=== PATIENT | female | born 1985 | race Caucasian/White ===

== ENCOUNTER 2020-12-12 11:40 | Outpatient (CLI) | payer SELFPAY ==
[~2020-12-12] VITALS: Ht 145.1 cm; Wt 76.5 kg
[2020-12-12 12:18] VITALS: BP 121/69
[2020-12-12 12:22] VITALS: BP 121/69
[2020-12-12] MEDS ORDERED: LACTATED RINGERS 1,000 ML IV ONE (13:00)
[2020-12-12 13:10] LABS: CLARITY,URINE TURBID; COLOR,URINE YELLOW; GLUCOSE, URINE (UA) NEGATIVE (NEGATIVE); KETONES,URINE NEGATIVE (NEGATIVE); NITRITE,URINE NEGATIVE (NEGATIVE); PROTEIN,URINE 1+ (NEGATIVE)
[2020-12-12 13:11] LABS: LEUKOCYTE ESTERASE ,URINE 2+ (NEGATIVE)
[2020-12-12 13:13] LABS: BILIRUBIN,URINE 1+ (NEGATIVE)
[2020-12-12 13:16] LABS: WBC,URINE TNTC /HPF
[2020-12-12 13:17] LABS: BACTERIA,URINE MODERATE /HPF; TRICHOMONAS,URINE MODERATE /HPF
[2020-12-12] MEDS ORDERED: PREN-37 PO (14:45)
[2020-12-12] MEDS ORDERED: metroNIDAZOLE 500 MG (FLAGYL) TAB PO ONE (14:45)
[2020-12-12] MEDS ORDERED: FERR-84 PO (14:45)
--- NOTE | 2020-12-12 14:53 | Diagnostic Imaging Report ---
INDICATION: Leaking fluid. TECHNIQUE: Multiple real-time grayscale images were obtained over the gravid uterus. COMPARISON: None FINDINGS: There is a single live fetus in a cephalic presentation. heart rate was recorded 129 bpm. Placenta is anterior. Amniotic fluid index is low at 6.0 cm. No other significant abnormality is seen. Biometrical measurements are as follows: Biparietal 8.38 cm, age 33 weeks 6 days. Head circumference 30.35 cm, age 33 weeks 6 days. Abdominal circumference 29.35 cm, age 33 weeks 3 days. Femur length 6.25 cm, age 32 weeks 3 days. Sonographic estimate age: 33 weeks 3 days. Sonographic estimated date of delivery: 01/28/20. Estimated Weight: 2127 gm (+/- 311 gm). LMP percentile: 4%. heart rate: 129 beats per minute. number: 1 of 1. IMPRESSION: Single live IUP approximate 33 weeks gestational age. The estimated date of confinement sonographically is 01/28/2020. Note is made that the amniotic fluid index is slightly low at 6.0 cm. Dictated by: Dictated on workstation # [id number]
[2020-12-12] MEDS ORDERED: METR500T PO (15:05)
[2020-12-12 15:19] VITALS: BP 121/69
--- NOTE | 2020-12-13 09:15 | Physician Query-Final Dx ---
ADITYA SALCIDO 12/13/20 0915: Clinic Account Progress/Dx Physician Query: Please give diagnosis Please include # weeks gestation Date of Service Dec 12, 2020 at 11:40 MAYA CHADWICK MD 12/16/20 1932: Clinic Account Progress/Dx DIAGNOSIS: Diagnosis 1. Uterine cramping/irritability 2. Trich 3. IUP in 2nd trimester ADITYA SALCIDO Dec 13, 2020 09:15 MAYA CHADWICK MD Dec 16, 2020 19:32
== END 2020-12-12 15:19 | disposition home or self-care (01) ==
LOC: WSo 11:40 → LDRP 11:43 → WSo 15:19
PROVIDERS: ATTEND Family Medicine
DX: O62.4 Hypertonic, incoordinate, and prolonged uterine contractions (principal); O98.312 Other infections with a predominantly sexual mode of transmission complicating pregnancy, second trimester; Z3A.00 Weeks of gestation of pregnancy not specified
CPT/HCPCS: 76805; 81000; 87077; 87088; 96360; G0463; Q0114; 89060; 99214

== ENCOUNTER 2020-12-25 16:40 | Observation (INO) | payer MEDICAID, OTHER ==
[~2020-12-25] VITALS: Ht 146 cm; Wt 76.8 kg
[~2020-12-25 16:40] MED LIST: FERR-84 PO; METR500T PO; PREN-37 PO
[2020-12-25 17:13] VITALS: BP 123/72
[2020-12-25 17:39] LABS: BILIRUBIN,URINE NEGATIVE (NEGATIVE); CLARITY,URINE CLEAR; COLOR,URINE YELLOW; GLUCOSE, URINE (UA) NEGATIVE (NEGATIVE); KETONES,URINE NEGATIVE (NEGATIVE); LEUKOCYTE ESTERASE ,URINE NEGATIVE (NEGATIVE); NITRITE,URINE NEGATIVE (NEGATIVE); PROTEIN,URINE NEGATIVE (NEGATIVE)
[2020-12-25 17:48] LABS: BACTERIA,URINE TRACE /HPF; CALCIUM OXALATE CRYSTALS,UR MODERATE /LPF; WBC,URINE RARE /HPF
[2020-12-25 17:50] VITALS: BP 119/69
[2020-12-25] MEDS ORDERED: LACTATED RINGERS 1,000 ML IV ONE (18:13)
[2020-12-25] MEDS ORDERED: BETAMETHASONE ACE/NA PHOS 6 MG/ML (CELESTONE SOLUSPAN) ONE (18:13)
[2020-12-25] MEDS ORDERED: TERBUTALINE INJ 1 MG/ML (BRETHINE) AMP ONE ×2 (18:13→20:51)
[2020-12-25] MEDS ORDERED: BETAMETHASONE ACE/NA PHOS 6 MG/ML (CELESTONE SOLUSPAN) IM SCH (18:15)
[2020-12-25] MEDS ORDERED: TERBUTALINE INJ 1 MG/ML (BRETHINE) AMP SC ONE ×3 (18:15→22:45)
[2020-12-25] MEDS: LACTATED RINGERS 1,000 ML IV SCH ×2 (18:22→21:16)
[2020-12-25] MEDS ORDERED: BUTORPHANOL INJ 2 MG/ML (STADOL) VIAL ONE (18:54)
[2020-12-25] MEDS ORDERED: BUTORPHANOL INJ 2 MG/ML (STADOL) VIAL IV ONE (19:00)
[2020-12-25 20:30] VITALS: BP 108/58
[2020-12-25] MEDS ORDERED: ZOLPIDEM 5 MG (AMBIEN) TAB PO ONE (20:45)
[2020-12-25 22:30] VITALS: BP 119/53
[2020-12-25 23:30] VITALS: BP 108/50
[2020-12-26] VITALS (17 sets, daily range): BP systolic 92–125; BP diastolic 45–67
[2020-12-26] MEDS: LACTATED RINGERS 1,000 ML IV SCH ×2 (05:11→13:08)
--- NOTE | 2020-12-26 07:14 | History & Physical-OB ---
OB - Chief Complaint & HPI Date/Time Date of Admission: Date of Admission: Date seen by a Provider: Dec 26, 2020 Time Seen by a Provider: 06:30 Chief Complaint/History OB-Reason for Admission/Chief: contraction Hx : 7 Hx Para: 0 Expected Date of Delivery: Jan 12, 2021 Gestational Age in Weeks: 37 Gestational Age in Days: 8 Other 35 yo [id number] here with uterine contractions. She presented to [facility] with late care. She presented in third trimester and did not receive her first ultrasound until 2 weeks ago here at . EDC based upon late ultrasound is January 27, 2021. Allergies and Home Medications Allergies Coded Allergies: No Known Drug Allergies (Unverified , 12/12/20) Patient Home Medication List Home Medication List Reviewed: Yes Ferrous Sulfate (Iron) 325 Mg Tablet, 325 MG PO DAILY, (Reported) Entered as Reported by: UNRULY STEPHENS on 12/12/20 1445 Metronidazole (Flagyl) 500 Mg Tablet, 500 MG PO BID Prescribed by: UNRULY STEPHENS on 12/12/20 1505 Vit/Iron Fumarate/FA ( Tablet) 1 Each Tablet, 1 EACH PO DAILY, (Reported) Entered as Reported by: UNRULY STEPHENS on 12/12/20 1445 OB - History Hx of Present Care: Yes Ultrasounds: Other (Late US performed 12/12/2020) Obstetrical Complications: None Medical Complications: Other (Trich treated 12/19) Obstetrical History Hx : 7 Hx Para: 0 Hx Total # of Abortions (Spona: 0 Patient Past Medical History No chronic medical problems Social History/Family History Alcohol Use: Denies Use Recreational Drug Use: No 2nd Hand Smoke Exposure: No OB - Admission Exam Physical Exam Vitals: Vital Signs 12/26/20 12/26/20 03:30 06:30 Temp 36.6 Pulse 109 Resp 18 B/P (MAP) 109/56 (73) Pulse Ox 100 O2 Delivery Room Air HEENT: Moist Membranes Heart: Rhythm Normal Lungs: Clear Abdomen: Gravid Cervical Dilatation: 4cm Effacement: 75% Membranes: Intact Heart Rate: 140's Accelerations: Accelerations Present Contractions on Admission: 6-10 Minutes Apart Intensity: Mild Labs Laboratory Tests Test 12/25/20 16:50 Range/Units Urine Color YELLOW Urine Clarity CLEAR Urine pH 6.0 5-9 Urine Specific [place] 1.025 H 1.016-1.022 Urine Protein NEGATIVE NEGATIVE Urine Glucose (UA) NEGATIVE NEGATIVE Urine Ketones NEGATIVE NEGATIVE Urine Nitrite NEGATIVE NEGATIVE Urine Bilirubin NEGATIVE NEGATIVE Urine Urobilinogen 0.2 < = 1.0 MG/DL Urine Leukocyte Esterase NEGATIVE NEGATIVE Urine RBC (Auto) NEGATIVE NEGATIVE Urine RBC NONE /HPF Urine WBC RARE /HPF Urine Squamous Epithelial Cells 5-10 /HPF Urine Crystals PRESENT H /LPF Urine Calcium Oxalate Crystals MODERATE H /LPF Urine Bacteria TRACE /HPF Urine Casts NONE /LPF Urine Mucus NEGATIVE /LPF Urine Culture Indicated CULTURE PENDING OB - Assessment/Plan/Diagnosis Assessment Assessment: labor (with membranes intact) Admission Dx 1. IUP at 35 weeks with uterine contractions. Admission Status: Observation Plan Plan: Expectant Management Other Plan -betamethasone 2 doses planned. (1 given 12/25 and 1 planned for today) -hydration -rest MAYA CHADWICK MD Dec 26, 2020 07:14
[2020-12-26] MEDS: NIFEdipine 10 MG CAPS (WOMEN'S SERVICES ONLY!!!) PO SCH ×3 (08:38→16:36)
--- NOTE | 2020-12-26 09:50 | Diagnostic Imaging Report ---
INDICATION: Oligohydramnios. TECHNIQUE: Multiple real-time grayscale images were obtained over the gravid uterus. COMPARISON: None FINDINGS: Single live intrauterine fetus in vertex presentation. The placenta is anterior and not low. Amniotic fluid index is decreased. The largest fluid cavity measured is left upper quadrant at 3.4 cm with JOSR of 6. Biometrical measurements are as follows: Biparietal 8.96 cm, age 36 weeks 2 days. Head circumference 33.07 cm, age 37 weeks 5 days. Abdominal circumference 30.11 cm, age 34 weeks 1 days. Femur length 6.44 cm, age 33 weeks 2 days. Sonographic estimate age: 35 weeks 3 days. Sonographic estimated date of delivery: 01/27/2021. Estimated Weight: 2424 gm (+/- 354 gm). LMP percentile: 4%. heart rate: 136 beats per minute. number: 1 of 1. IMPRESSION: 1. There is a 37 week 4 day by LMP. Current measurements place the fetus in the 4th percent. 2. Decreased amniotic fluid volume. Dictated by: Dictated on workstation # [id number]
[2020-12-26] MEDS ORDERED: BETAMETHASONE ACE/NA PHOS 6 MG/ML (CELESTONE SOLUSPAN) IM SCH ×2 (12:15→18:15)
[2020-12-26] MEDS ORDERED: NIFE30TA2 PO (17:14)
== END 2020-12-26 17:22 | disposition home or self-care (01) ==
LOC: WSo 16:40 → LDRP 16:40 → WSo 12-26 09:43 → UNDOADMOB 12-26 09:56 → LDRP 12-26 09:56 → UNDODISOB 12-26 17:30 → EDSTATUS 01-04 09:19
PROVIDERS: ADMIT Family Medicine; ATTEND Family Medicine
DX: O60.03 Preterm labor without delivery, third trimester (principal); O09.523 Supervision of elderly multigravida, third trimester; Z3A.35 35 weeks gestation of pregnancy; Z79.899 Other long term (current) drug therapy
CPT/HCPCS: 76805; 81000; 87088; 87210; 96361 ×2; 96372 ×2; 96374; G0378; G0379; Q0114; 89060

== ENCOUNTER 2020-12-27 16:52 | Outpatient (CLI) | payer OTHER ==
[~2020-12-27] VITALS: Ht 146 cm; Wt 77.9 kg
[~2020-12-27 16:52] MED LIST changes: +NIFE30TA2 PO
--- NOTE | 2020-12-27 18:50 | History & Physical-OB ---
OB - Chief Complaint & HPI Date/Time Date of Admission: Date of Admission: Date seen by a Provider: Dec 27, 2020 Time Seen by a Provider: 18:45 Chief Complaint/History OB-Reason for Admission/Chief: Obstetrical Complication ( labor) Hx : 9 Hx Para: 8 Expected Date of Delivery: Jan 27, 2021 Gestational Age in Weeks: 35 Gestational Age in Days: 4 Indication for induction: other ( labor) Admission Nurse Assessment Rev: Yes History of Labs GBS status unknown Allergies and Home Medications Allergies Coded Allergies: No Known Drug Allergies (Unverified , 12/12/20) Patient Home Medication List Home Medication List Reviewed: Yes Ferrous Sulfate (Iron) 325 Mg Tablet, 325 MG PO DAILY, (Reported) Entered as Reported by: UNRULY STEPHENS on 12/12/20 1445 Nifedipine (Procardia Xl) 30 Mg Tab.er.24, 10 MG PO 4-6 hours PRN for as scheduled Prescribed by: JERILYN NOLAN on 12/26/20 1714 Vit/Iron Fumarate/FA ( Tablet) 1 Each Tablet, 1 EACH PO DAILY, (Reported) Entered as Reported by: UNRULY STEPHENS on 12/12/20 1445 Discontinued Medications Metronidazole (Flagyl) 500 Mg Tablet, 500 MG PO BID Discontinued Reason: No Longer Taking Prescribed by: UNRULY STEPHENS on 12/12/20 1505 OB - History Hx of Present Care: Yes Ultrasounds: Other (Late care) Abnormal Ultrasound Findings: Biophysical profile today 04/09 scoring at [facility] Obstetrical Complications: Other (As above) Medical Complications: None Patient Past Medical History No chronic medical problems Social History/Family History 2nd Hand Smoke Exposure: No OB - Admission Exam Physical Exam HEENT: Moist Membranes Heart: Rhythm Normal Lungs: Clear Abdomen: Gravid Cervical Dilatation: 3cm Effacement: 75% Station: -3 Membranes: Intact Heart Rate: 140's Accelerations: No Accelerations Contractions on Admission: 6-10 Minutes Apart Intensity: Mild OB - Assessment/Plan/Diagnosis Assessment Assessment: labor (At 35 weeks 4 days gestation), other Admission Dx 1. Intrauterine at 35 weeks 4 days gestation based upon late ultrasound 2. Biophysical profile 04/09 -due to gestational age will check with [facility] and the NICU for transfer. Admission Status: Observation Reason for Inpatient Admission: Further monitoring MAYA CHADWICK MD Dec 27, 2020 18:50
[2020-12-27 18:59] LABS: BASOPHILS % (AUTO) 0 % (0-10); EOSINOPHILS % (AUTO) 0 % (0-10); HEMATOCRIT 32 % (35-52); HEMOGLOBIN 10.1 g/dL (11.5-16.0); LYMPHOCYTES # (AUTO) 2.1 10^3/uL (1.0-4.0); LYMPHOCYTES % (AUTO) 17 % (12-44); MEAN CORPUSCULAR HEMOGLOBIN 27 pg (25-34); MEAN CORPUSCULAR HGB CONC 32 g/dL (32-36); MEAN CORPUSCULAR VOLUME 84 fL (80-99); MEAN PLATELET VOLUME 9.9 fL (9.0-12.2); MONOCYTES # (AUTO) 0.9 10^3/uL (0.0-1.0); MONOCYTES % (AUTO) 8 % (0-12); NEUTROPHILS # (AUTO) 9.1 10^3/uL (1.8-7.8); NEUTROPHILS % (AUTO) 73 % (42-75); PLATELET COUNT 300 10^3/uL (130-400); WHITE BLOOD COUNT 12.4 10^3/uL (4.3-11.0)
[2020-12-27 19:26] VITALS: BP 106/57
[2020-12-27 20:10] VITALS: BP 109/66
== END 2020-12-27 20:39 | disposition short-term general hospital (02) ==
LOC: WSo 16:52 → LDRP 16:56 → WSo 20:39
PROVIDERS: ATTEND Family Medicine
DX: O60.03 Preterm labor without delivery, third trimester (principal); Z3A.35 35 weeks gestation of pregnancy
CPT/HCPCS: 36415; 85025; 86850; 86900; 86901

== ENCOUNTER 2021-09-05 17:08 | Emergency (ER) | payer MEDICAID ==
[~2021-09-05] VITALS: Ht 145 cm; Wt 72.5 kg
[2021-09-05 17:35] LABS: BILIRUBIN,URINE NEGATIVE (NEGATIVE); CLARITY,URINE CLEAR; COLOR,URINE RED; GLUCOSE, URINE (UA) TRACE (NEGATIVE); KETONES,URINE TRACE (NEGATIVE); LEUKOCYTE ESTERASE ,URINE 2+ (NEGATIVE); NITRITE,URINE POSITIVE (NEGATIVE); PROTEIN,URINE 3+ (NEGATIVE)
[2021-09-05 17:44] LABS: BACTERIA,URINE MODERATE /HPF; RBC,URINE TNTC /HPF; WBC,URINE 25-50 /HPF
[2021-09-05] MEDS ORDERED: ACETAMINOPHEN 500 MG TAB (TYLENOL) PO STA (18:11)
[2021-09-05] MEDS ORDERED: NITR-65 PO (18:11)
--- NOTE | 2021-09-05 18:11 | ED GI ---
General Chief Complaint: Abdominal/GI Problems Stated Complaint: LEFT ABD PAIN AND LEFT BACK PAIN Nursing Triage Note: PT PRESENTS TO ED VIA EMS FROM HOME WITH COMPLAINTS OF LUQ AND LLQ PAIN THAT RADIATES TO HER BACK, AND BURING WITH URINATION. PT DENIES N/V/D. (MICHAEL OMER) History of Present Illness Date Seen by Provider: Sep 05, 2021 Time Seen by Provider: 17:15 Initial Comments 36 year old female reports suprapubic pain and UTI symptoms. No recent UTI. Denies other complaints. Timing/Duration: 1-2 Days Severity/Quality: Mild Location: Suprapubic Radiation: No Radiation Associated Symptoms: Denies Symptoms (MICHAEL OMER) Allergies and Home Medications Allergies Coded Allergies: No Known Drug Allergies (Unverified , 12/12/20) Patient Home Medication List Home Medication List Reviewed: Yes (MICHAEL OMER) Ferrous Sulfate (Iron) 325 Mg Tablet, 325 MG PO DAILY, (Reported) Entered as Reported by: UNRULY STEPHENS on 12/12/20 1445 Nifedipine (Procardia Xl) 30 Mg Tab.er.24, 10 MG PO 4-6 hours PRN for as scheduled Prescribed by: JERILYN NOLAN on 12/26/20 1714 Nitrofurantoin Monohyd/M-Cryst (Macrobid 100 mg Capsule) 100 Mg Capsule, 1 TAB PO BID Prescribed by: MICHAEL OMER on 09/05/21 181 Vit/Iron Fumarate/FA ( Tablet) 1 Each Tablet, 1 EACH PO DAILY, (Reported) Entered as Reported by: UNRULY STEPHENS on 12/12/20 1445 Review of Systems Review of Systems Constitutional: no symptoms reported, see HPI Genitourinary: See HPI, Frequency, Flank Pain (MICHAEL OMER) All Other Systems Reviewed Negative Unless Noted: Yes (MICHAEL OMER) Past Ddhlzvx-Xqnsfi-Scjaff Hx Patient Social History Substance use?: No Alcohol Use?: No Pt feels they are or have been: No (MICHAEL OMER) Family Medical History Reviewed Nursing Family Hx (MICHAEL OMER) Physical Exam Vital Signs Vital Signs - First Documented 09/05/21 17:10 Temp 35.7 Pulse 66 Resp 18 B/P (MAP) 161/86 (111) Pulse Ox 98 (PERRI SAENZ MD) Vital Signs Capillary Refill : Less Than 3 Seconds (MICHAEL OMER) Height/Weight/BMI Height: '" Weight: lbs. oz. kg; 34.00 BMI Method: General Appearance: WD/WN, no apparent distress Respiratory: chest non-tender, lungs clear, normal breath sounds Cardiovascular: normal peripheral pulses, regular rate, rhythm Gastrointestinal: normal bowel sounds, non tender, soft Back: normal inspection, no CVA tenderness Neurologic/Psychiatric: no motor/sensory deficits, alert, normal mood/affect, oriented x 3 Skin: normal color, warm/dry (MICHAEL OMER) Progress/Results/Core Measures Results/Orders Lab Results Laboratory Tests Test 09/05/21 17:29 Range/Units Urine Color RED H Urine Clarity CLEAR Urine pH 5.0 5-9 Urine Specific [place] >=1.030 1.016-1.022 Urine Protein 3+ H NEGATIVE Urine Glucose (UA) TRACE H NEGATIVE Urine Ketones TRACE H NEGATIVE Urine Nitrite POSITIVE H NEGATIVE Urine Bilirubin NEGATIVE NEGATIVE Urine Urobilinogen 2.0 < = 1.0 MG/DL Urine Leukocyte Esterase 2+ H NEGATIVE Urine RBC (Auto) 3+ H NEGATIVE Urine RBC TNTC H /HPF Urine WBC 25-50 H /HPF Urine Squamous Epithelial Cells 5-10 /HPF Urine Crystals NONE /LPF Urine Bacteria MODERATE H /HPF Urine Casts NONE /LPF Urine Mucus NEGATIVE /LPF Urine Culture Indicated YES (PERRI SAENZ MD) Vital Signs/I&O 09/05/21 09/05/21 17:10 18:18 Temp 35.7 Pulse 66 66 Resp 18 18 B/P (MAP) 161/86 (111) 150/80 Pulse Ox 98 98 (PERRI SAENZ MD) Blood Pressure Mean: 111 Departure Impression Primary Impression: UTI (urinary tract infection) Qualified Codes: N30.01 - Acute cystitis with hematuria Disposition: HOME, SELF-CARE Condition: Improved Departure-Patient Inst. Decision time for Depature: 18:00 (MICHAEL OMER) Referrals: MAYA CHADWICK MD (PCP/Family) Primary Care Physician Patient Instructions: Urinary Tract Infection, Adult (DC) Add. Discharge Instructions: Increase water intake, 16 ounces every 2 hours while awake. Empty bladder every 2 hours while awake. Drink 1 cup of cranberry juice daily. Take antibiotics as prescribed. You may alternate between Tylenol 650 mg and ibuprofen 600 mg every 4 hours for pain. Follow-up with your primary care provider or [facility] if symptoms are not improving or worsen Return to the emergency department for new, urgent healthcare needs. All discharge instructions reviewed with patient and/or family. Voiced understanding. Scripts Nitrofurantoin Monohyd/M-Cryst (Macrobid 100 mg Capsule) 100 Mg Capsule 1 TAB PO BID, #14 CAP 0 Refills Prov: MICHAEL OMER 09/05/21 ATTENDING PHYSICIAN NOTE: I was physically present as attending physician in the emergency department during the care of this patient, but I was not directly involved in the decision making or delivery of care for this patient. (PERRI SAENZ MD) MICHAEL OMER Sep 05, 2021 18:11 PERRI SAENZ MD Sep 06, 2021 06:24
[2021-09-05 18:18] VITALS: BP 150/80
== END 2021-09-05 18:18 | disposition home or self-care (01) ==
LOC: EDUNIT# 17:08 → ER 17:11
DX: N39.0 Urinary tract infection, site not specified (principal); Z28.310 Unvaccinated for COVID-19
CPT/HCPCS: 81000; 87088; 99283

== ENCOUNTER 2022-05-12 00:06 | Emergency (ER) | payer MEDICAID ==
[~2022-05-12] VITALS: Ht 145 cm; Wt 74.0 kg
[~2022-05-12 00:06] MED LIST changes: +NITR-65 PO
[2022-05-12 00:11] VITALS: BP 156/81
[2022-05-12] MEDS ORDERED: CLOTRIMAZOLE (00:16)
[2022-05-12] MEDS ORDERED: AMOX500T2 (00:16)
[2022-05-12 00:30] LABS: BILIRUBIN,URINE NEGATIVE (NEGATIVE); CLARITY,URINE CLEAR; COLOR,URINE YELLOW; GLUCOSE, URINE (UA) NEGATIVE (NEGATIVE); KETONES,URINE 1+ (NEGATIVE); LEUKOCYTE ESTERASE ,URINE 2+ (NEGATIVE); NITRITE,URINE NEGATIVE (NEGATIVE); PH,URINE 6.5 (5-9); PROTEIN,URINE 1+ (NEGATIVE)
[2022-05-12 00:36] LABS: BACTERIA,URINE MODERATE /HPF; RBC,URINE TNTC /HPF; WBC,URINE TNTC /HPF
--- NOTE | 2022-05-12 00:54 | ED GU-Female ---
General Chief Complaint: - Reproductive Stated Complaint: POSS MED REACTION Nursing Triage Note: C/O PAINFUL URINATION STARTING TONIGHT. STARTED ON AMOXICILLIN & CLOMOTRIZOLE 05/11/22 FOR INFECTION. PT REPORTS BEING 3 MONTHS WITH LMP 02/08/23 Allergies and Home Medications Allergies Coded Allergies: No Known Drug Allergies (Unverified , 12/12/20) Patient Home Medication List Amoxicillin (Amoxicillin) 500 Mg Tablet, (Reported) Entered as Reported by: CARLIE OLEARY on 05/12/2215 Last Action: New Order Ferrous Sulfate (Iron) 325 Mg Tablet, 325 MG PO DAILY, (Reported) Entered as Reported by: UNRULY STEPHENS on 12/12/20 1445 Nifedipine (Procardia Xl) 30 Mg Tab.er.24, 10 MG PO 4-6 hours PRN for as scheduled Prescribed by: JERILYN NOLAN on 12/26/20 171 Nitrofurantoin Monohyd/M-Cryst (Macrobid 100 mg Capsule) 100 Mg Capsule, 1 TAB PO BID Prescribed by: MICHAEL OMER on 09/05/21 181 Vit/Iron Fumarate/FA ( Tablet) 1 Each Tablet, 1 EACH PO DAILY, (Reported) Entered as Reported by: UNRULY STEPHENS on 12/12/20 1445 [Clotrimazole] , (Reported) Entered as Reported by: CARLIE OLEARY on 05/12/2215 Last Action: New Order Past Jpmrysq-Qalcvn-Sjkckr Hx Patient Social History Tobacco Use?: No Substance use?: No Alcohol Use?: No Pt feels they are or have been: No Immunizations Up To Date First/Initial COVID19 Vaccinat: NA Past Medical History Surgery/Hospitalization HX: DENIES Last Menstrual Period: Feb 08, 2023 Physical Exam Vital Signs Vital Signs - First Documented 05/12/22 00:11 Temp 36.2 Pulse 82 Resp 16 B/P (MAP) 156/81 (106) Pulse Ox 99 O2 Delivery Room Air Capillary Refill : Less Than 3 Seconds Height, Weight, BMI Height: '" Weight: lbs. oz. kg; 35.00 BMI Method: Progress/Results/Core Measures Suspected Sepsis SIRS Temperature: Pulse: 82 Respiratory Rate: 16 Blood Pressure 156 /81 Mean: 106 Results/Orders Lab Results Laboratory Tests Test 05/12/22 00:14 Range/Units Urine Color YELLOW Urine Clarity CLEAR Urine pH 6.5 5-9 Urine Specific [place] >=1.030 1.016-1.022 Urine Protein 1+ H NEGATIVE Urine Glucose (UA) NEGATIVE NEGATIVE Urine Ketones 1+ H NEGATIVE Urine Nitrite NEGATIVE NEGATIVE Urine Bilirubin NEGATIVE NEGATIVE Urine Urobilinogen 1.0 < = 1.0 MG/DL Urine Leukocyte Esterase 2+ H NEGATIVE Urine RBC (Auto) 2+ H NEGATIVE Urine RBC TNTC H /HPF Urine WBC TNTC H /HPF Urine Squamous Epithelial Cells 5-10 /HPF Urine Crystals NONE /LPF Urine Bacteria MODERATE H /HPF Urine Casts NONE /LPF Urine Mucus NEGATIVE /LPF Urine Culture Indicated YES My Orders Orders - JAIMIE TYLER DO Ua Culture If Indicated (05/12/22 00:24) Urine Culture (05/12/22 00:14) Heart Tones (05/12/22 00:44) Vital Signs/I&O 05/12/22 00:11 Temp 36.2 Pulse 82 Resp 16 B/P (MAP) 156/81 (106) Pulse Ox 99 O2 Delivery Room Air Capillary Refill : Less Than 3 Seconds Blood Pressure Mean: 106 Departure Impression Primary Impression: uti in early Disposition: 01 HOME, SELF-CARE Condition: Stable Departure-Patient Inst. Decision time for Depature: 00:53 Referrals: MAYA CHADWICK MD (PCP/Family) Primary Care Physician Patient Instructions: Urinary Tract Infections in Add. Discharge Instructions: CONTINUE YOUR MEDICATIONS PRESCRIBED LOTS OF WATER TYLENOL NEEDED FOR PAIN FOLLOW UP WITH [facility] THIS WEEK FOR FURTHER CARE--CALL IN THE MORNING TO SCHEDULE APPOINTMENT All discharge instructions reviewed with patient and/or family. Voiced understanding. JAIMIE TYLER DO May 12, 2022 00:54
== END 2022-05-12 00:55 | disposition home or self-care (01) ==
LOC: EDUNIT# 00:06 → ER 00:08
DX: O23.41 Unspecified infection of urinary tract in pregnancy, first trimester (principal); N39.0 Urinary tract infection, site not specified; Z28.310 Unvaccinated for COVID-19
CPT/HCPCS: 81000; 84703; 87088

== ENCOUNTER 2022-10-08 05:40 | Outpatient (CLI) | payer MEDICAID ==
[~2022-10-08] VITALS: Ht 144.8 cm; Wt 71.4 kg
[~2022-10-08 05:40] MED LIST changes: +AMOX500T2; +CLOTRIMAZOLE
[2022-10-08 05:46] VITALS: BP 119/59
[2022-10-08 06:26] LABS: BILIRUBIN,URINE NEGATIVE (NEGATIVE); CLARITY,URINE SLIGHTLY CLOUDY; COLOR,URINE YELLOW; GLUCOSE, URINE (UA) TRACE (NEGATIVE); KETONES,URINE NEGATIVE (NEGATIVE); NITRITE,URINE NEGATIVE (NEGATIVE); PROTEIN,URINE TRACE (NEGATIVE)
[2022-10-08 06:27] LABS: BACTERIA,URINE TRACE /HPF; GRANULAR CASTS,URINE RARE /LPF; LEUKOCYTE ESTERASE ,URINE TRACE (NEGATIVE); RBC,URINE RARE /HPF; RED BLOOD CELL CASTS,URINE RARE /LPF; WBC,URINE 0-2 /HPF
[2022-10-08 08:15] VITALS: BP 100/60
--- NOTE | 2022-10-09 09:13 | Physician Query-Final Dx ---
LOLY10/09/22 0913: Clinic Account Progress/Dx Physician Query: Please give diagnosis Please include # weeks gestation Date of Service Oct 08, 2022 at 05:40 MAYA CHADWICK MD 10/20/22 2202: Clinic Account Progress/Dx DIAGNOSIS: Diagnosis 1. Intrauterine at 32 weeks gestation 2. Uterine irritabilitynon-labor LOLY,MarOct 09, 2022 09:13 MAYA CHADWICK MD Oct 20, 2022 22:02
== END 2022-10-08 09:00 | disposition home or self-care (01) ==
LOC: LDRP 05:40 → WSo 05:40
PROVIDERS: ATTEND Family Medicine
DX: Z34.93 Encounter for supervision of normal pregnancy, unspecified, third trimester (principal); Z3A.32 32 weeks gestation of pregnancy
CPT/HCPCS: 81000; G0463; 99213

== ENCOUNTER 2022-10-21 00:12 | Outpatient (CLI) | payer MEDICAID ==
[~2022-10-21] VITALS: Ht 145 cm; Wt 71.1 kg
[2022-10-21 00:28] VITALS: BP 125/73
[2022-10-21 00:45] LABS: BACTERIA,URINE TRACE /HPF; BILIRUBIN,URINE NEGATIVE (NEGATIVE); CLARITY,URINE CLEAR; COLOR,URINE YELLOW; GLUCOSE, URINE (UA) NEGATIVE (NEGATIVE); KETONES,URINE NEGATIVE (NEGATIVE); LEUKOCYTE ESTERASE ,URINE TRACE (NEGATIVE); NITRITE,URINE NEGATIVE (NEGATIVE); PROTEIN,URINE NEGATIVE (NEGATIVE); WBC,URINE RARE /HPF
[2022-10-21 00:46] LABS: CALCIUM OXALATE CRYSTALS,UR RARE /LPF
[2022-10-21] MEDS ORDERED: BETAMETHASONE Acetate/Na Phosphate 6 MG/ML INJ IM ONE (02:00)
[2022-10-21] MEDS ORDERED: LACTATED RINGERS 1,000 ML 1,000 ML IV SCH (02:00)
--- NOTE | 2022-10-22 07:43 | Physician Query-Final Dx ---
LOLY,10/22/22 0742: Clinic Account Progress/Dx Physician Query: Please give diagnosis Please include # weeks gestation Date of Service Oct 21, 2022 at 00:12 SALVADOR CELIS DO 10/24/22 1022: Clinic Account Progress/Dx DIAGNOSIS: Diagnosis 34 wk GA contractions, not in active labor LOLY,MarOct 22, 2022 07:42 SALVADOR CELIS DO Oct 24, 2022 10:22
== END 2022-10-21 03:50 | disposition home or self-care (01) ==
LOC: WSo 00:12 → LDRP 00:13 → WSo 03:50
PROVIDERS: ATTEND Family Medicine
DX: O47.03 False labor before 37 completed weeks of gestation, third trimester (principal); Z3A.34 34 weeks gestation of pregnancy
CPT/HCPCS: 81000; 96360; 96372; G0463; 99213

== ENCOUNTER → 2022-10-22 | Outpatient (CLI) | payer MEDICAID | LOC: WSo 08:39 | PROVIDERS: ATTEND Family Medicine | DX: Z34.90 Encounter for supervision of normal pregnancy, unspecified, unspecified trimester (principal); Z3A.00 Weeks of gestation of pregnancy not specified | CPT/HCPCS: 96372 ==

== ENCOUNTER 2022-11-11 05:29 | Outpatient (CLI) | payer MEDICAID ==
[~2022-11-11] VITALS: Ht 146.3 cm; Wt 73.8 kg
[2022-11-11] MEDS ORDERED: FERR500P12 MC (13:35)
[2022-11-11] MEDS ORDERED: INSU100I88 SQ (13:35)
[2022-11-11] MEDS ORDERED: METF-397 PO (13:35)
[2022-11-13] MEDS ORDERED: DOCU100C37 PO (08:58)
[2022-11-13] MEDS ORDERED: IBUP-1780 PO (08:58)
[2022-11-13] MEDS ORDERED: ACHD5005 PO (08:58)
== END 2022-11-13 09:33 | disposition home or self-care (01) ==
LOC: PREOP 05:29
PROVIDERS: ATTEND Obstetrics & Gynecology
DX: Z01.818 Encounter for other preprocedural examination (principal)

== ENCOUNTER 2022-11-12 03:58 | Inpatient (IN) | payer MEDICAID ==
[~2022-11-12] VITALS: Ht 144.7 cm; Wt 73.4 kg
[2022-11-12] VITALS (13 sets, daily range): BP systolic 95–124; BP diastolic 47–60
[~2022-11-12 03:58] MED LIST changes: +FERR500P12 MC; +INSU100I88 SQ; +METF-397 PO
[2022-11-12] MEDS ORDERED: LACTATED RINGERS 1,000 ML 1,000 ML IV SCH (05:30)
[2022-11-12] MEDS ORDERED: ceFAZolin INJECTION 2,000 MG in NS (IVPB) 50 ML 50 ML IV ONE (06:45)
[2022-11-12] MEDS ORDERED: FAMOTIDINE INJ 20MG/2ML VIAL ONE (06:46)
[2022-11-12] MEDS ORDERED: CITRIC ACID/SODIUM CITRATE ORAL SOLN 30 ML ONE (06:46)
[2022-11-12] MEDS ORDERED: METOCLOPRAMIDE INJ 10 MG/2 ML ONE (06:46)
[2022-11-12 06:52] LABS: BASOPHILS # (AUTO) 0.1 10^3/uL (0.0-0.1); BASOPHILS % (AUTO) 1 % (0-10); EOSINOPHILS # (AUTO) 0.2 10^3/uL (0.0-0.3); EOSINOPHILS % (AUTO) 2 % (0-10); HEMATOCRIT 34 % (35-52); LYMPHOCYTES # (AUTO) 2.2 10^3/uL (1.0-4.0); LYMPHOCYTES % (AUTO) 25 % (12-44); MEAN CORPUSCULAR HEMOGLOBIN 27 pg (25-34); MEAN CORPUSCULAR HGB CONC 33 g/dL (32-36); MEAN CORPUSCULAR VOLUME 83 fL (80-99); MEAN PLATELET VOLUME 10.6 fL (9.0-12.2); MONOCYTES # (AUTO) 0.7 10^3/uL (0.0-1.0); MONOCYTES % (AUTO) 8 % (0-12); NEUTROPHILS # (AUTO) 5.8 10^3/uL (1.8-7.8); NEUTROPHILS % (AUTO) 64 % (42-75); PLATELET COUNT 293 10^3/uL (130-400); WHITE BLOOD COUNT 9.1 10^3/uL (4.3-11.0)
--- NOTE | 2022-11-12 06:57 | History & Physical-OB ---
OB - Chief Complaint & HPI Date/Time Date of Admission: Date of Admission: Date seen by a Provider: Nov 12, 2022 Time Seen by a Provider: 06:40 Chief Complaint/History OB-Reason for Admission/Chief: Section Hx : 10 Hx Para: 9 Expected Date of Delivery: Nov 27, 2022 Gestational Age in Weeks: 37 Gestational Age in Days: 6 Indication for induction: medical complication (GDMA2) Indication for : malpresentation, other ( decelerations) Admission Nurse Assessment Rev: Yes History of Labs O+ GBS + R-NI RPR NEG HEP B/C NEG HIV NEG Other This 37yo presents to L&D @ 37w6d with c/o CTXs that started this am. is significant for GDMA2, Breech presentation and low fluid. Upon arrival her cvx was 3/50/-3 (still breech) and CTXs q2-4min FHT 135 and good variability; however FHT were then decreased with two 2-3min decels (lates) It was decided to proceed to LTCS We d/w pt risks and benefits in detail of section. Pt verbalized understanding and is ready to proceed. Allergies and Home Medications Allergies Coded Allergies: No Known Drug Allergies (Unverified , 12/12/20) Patient Home Medication List Home Medication List Reviewed: Yes Ferrous Sulfate (Iron) 325 Mg Tablet, 325 MG PO DAILY, (Reported) Entered as Reported by: UNRULY STEPHENS on 12/12/201444 Last Action: Reviewed Insulin Detemir (Levemir Flexpen) 100 Unit/Ml (3 Ml) Insuln.pen, 100 UNIT SQ, (Reported) Entered as Reported by: Noris Gutierrez on 11/11/221334 Last Action: Reviewed Metformin HCl (Metformin HCl) 500 Mg Tablet, 500 MG PO, (Reported) Entered as Reported by: Noris Gutierrez on 11/11/221334 Last Action: Reviewed Vit/Iron Fumarate/FA ( Tablet) 1 Each Tablet, 1 EACH PO DAILY, (Reported) Entered as Reported by: UNRULY STEPHENS on 12/12/20 144 Last Action: Reviewed Discontinued Medications Ferrous Sulfate, Dried (Ferrous Sulfate) 100 % Powder, 500 GM MC, (Reported) Discontinued Reason: Duplicate Order Entered as Reported by: Noris Gutierrez on 11/11/221334 OB - History Hx of Present Care: Yes Ultrasounds: Normal mid trimester US, Abnormal US findings (breech presentation ) Obstetrical Complications: Gestational Diabetes Medical Complications: None Information Maternal Gestational Diabetes: Yes Obstetrical History Hx : 10 Hx Para: 9 Hx # Term Pregnancies: 8 Hx # Pregnancies: 1 Number of Living Children: 9 Hx Maternal Gestational Diabet: Yes Delivery History Hx Dystocia: No Hx Forceps Assisted Delivery: No Hx Vacuum Extraction Assisted: No Hx Placenta Abnormality: No Hx Distress: No Hx Large For Gestational Age I: No Hx Small for Gestational Age I: No Hx Section: No Hx Vaginal Delivery Post C-Sec: No Hx Blood Disorders: No Adverse Rxn to Tranfusion: No (NA) Patient Past Medical History No chronic medical problems Social History/Family History Alcohol Use: Denies Use Recreational Drug Use: No 2nd Hand Smoke Exposure: No Immunizations Influenza Vaccine Up-to-Date: Yes; Up-to-Date First/Initial COVID19 Vaccine: NA Rubella: not immune RPR/VDRL: Negative GBS Status: Positive HBsAG: Negative OB - Admission Exam Physical Exam Vitals: Vital Signs 11/12/22 11/12/22 04:26 05:40 Temp 36.2 Pulse 80 Resp 18 B/P (MAP) 120/60 (80) Pulse Ox 100 O2 Delivery Room Air HEENT: NCAT Lungs: Clear Abdomen: Gravid Extremities: Normal Reflexes: Normal Cervical Dilatation: 3cm Effacement: 50% Station: -3 Membranes: Intact Heart Rate: 130's Accelerations: Accelerations Present Decelerations: Late Decelarations Short Term Variability: Present Lithographic Stripper Variability: Average (6-25) Contractions on Admission: < 5 Minutes Apart Intensity: Moderate Labs Laboratory Tests Test 11/12/22 05:30 Range/Units OB - Assessment/Plan/Diagnosis Assessment Assessment: active labor, section Admission Dx IUP @ 37w6d GDMA2 Adv mat age labor decels Admit for LTCS Admission Status: Inpatient Order (span 2 midnights) Reason for Inpatient Admission: IUP @ 37w6d GDMA2 Adv mat age labor decels Admit for LTCS Plan Plan: Section ELKE FAIRCHILD DO Nov 12, 2022 06:57
[2022-11-12] MEDS ORDERED: METOCLOPRAMIDE INJ 10 MG/2 ML IV ONE (07:00)
[2022-11-12] MEDS ORDERED: CITRIC ACID/SODIUM CITRATE ORAL SOLN 30 ML PO ONE (07:00)
[2022-11-12] MEDS ORDERED: LACTATED RINGERS 1,000 ML 1,000 ML IV PRN ×2 (07:00)
[2022-11-12] MEDS ORDERED: FAMOTIDINE INJ 20MG/2ML VIAL IV ONE (07:00)
[2022-11-12] MEDS ORDERED: ONDANSETRON INJECTION 4 MG/2 ML (SDV) ONE (07:05)
[2022-11-12] MEDS ORDERED: BUPIVACAINE 0.25% 10 ML VIAL ONE (07:05)
[2022-11-12] MEDS ORDERED: KETOROLAC INJ 30 MG/ML VIAL ONE (07:05)
[2022-11-12] MEDS ORDERED: fentaNYL INJECTION 100 MCG/2 ML VIAL ONE (07:05)
[2022-11-12] MEDS ORDERED: OXYTOCIN DRIP PRE-MIX 1,000 ML IV ONE (07:05)
[2022-11-12 07:17] LABS: BAND NEUTROPHILS 0 %; BASOPHILS % (MANUAL) 0 %; EOSINOPHILS % (MANUAL) 3 %; LYMPHOCYTES % (MANUAL) 21 %; MONOCYTES % (MANUAL) 6 %; NEUTROPHILS % (MANUAL) 70 %; RBC MORPH NORMAL
[2022-11-12] MEDS: KETOROLAC INJ 15 MG/ML VIAL IV SCH ×2 (08:05→17:20)
--- NOTE | 2022-11-12 08:13 | Cesarean Section Operative ---
Procedure Procedure Note Pre-operative Diagnosis: Roslyn Abernathy is a (37 /Para 10 / 9, Gestational Age (wks)37w6d with breech presentation decels GDMA2 Post-operative Diagnosis: same plus liveborn female Procedure: Primary low transverse section Physician: ELKE FAIRCHILD Reel Hooker: Estimated blood loss: 500 mL Disposition: Counts correct x3 Stable to PACU Findings: Liveborn female infant, Apgars 7/8, weight 7#8oz, intact placenta, 3vc, normal appearing uterus, tubes, and ovaries. Indications:Roslyn osborne (37 /Para 10 / 9,Gestational Age (wks) 37w6d presenting for labor breech presentation decelerations Procedure Details: The patient was seen in pre-op and the procedure was discussed with the patient in full, including the risks, benefits, and alternatives. All questions were answered. The patient was taken to the operating room and a time out was performed, verifying patient and procedure. After spinal anesthesia was placed by our anesthesia colleagues, the patient was placed in the dorsal supine with leftward tilt for uterine displacement.~ Her abdomen was then prepped and draped in the typical sterile fashion. A Pfannenstiel skin incision was made using a scalpel and carried down through the underlying fascia. The fascia was incised in the midline and tented up using Rosette clamps. On both the inferior and superior fascia side the rectus muscle was dissected off bluntly and sharply using Eid scissors. The peritoneum was identified and entered bluntly in the midline. This was then stretched laterally using manual strength. After entering the abdominal cavity and confirming lack of intraperitoneal adhesions, a large Carmine retractor was placed and the lower uterine segment was visualized. A bladder flap was created with the use of Metzenbaum scissors.~ A scalpel was utilized to make a low transverse uterine incision. Amniotomy was performed with an Allis clamp with return of clear fluid. The infant's head was grasped and brought to the level of the incision. Fundal pressure was applied and infant was delivered without difficulty. Mouth and nares were suctioned with bulb suction. After the umbilical cord was clamped and cut, the was handed off to the pediatric staff. A sample of cord blood was then obtained. The placenta was delivered intact via uterine massage. The uterus was exteriorized and cleared of all clots and debris. The uterine incision was closed using 0 Vicryl in a running locked fashion. A second imbricated layer was placed using 0 Vicryl in a running fashion as well. The uterus was flexed forward and the posterior rectouterine space was inspected and cleared of all clots and debris. Again the hysterotomy site was examined and hemostasis was observed. The bilateral tubes and ovaries appeared normal. The uterus was placed back into the abdominal cavity and abdominal gutters were cleared of all clots and debris. A final check of the uterine incision showed it to be hemostatic. The peritoneum was closed using 0 Vicryl in a running fashion. The fascia was closed with 1 Vicryl in a running fashion. The subcutaneous space was hemostatic, and irrigated. The subcutaneous space was closed with 2-0 Vicryl in several single interrupted stitches. The skin was then closed using 4-0 Monocryl in a running subcuticular fashion. The skin edges were reapproximated together and were hemostatic. Dermabond was applied. All sponge, lap and needle counts were correct at the end of the procedure per nursing. Vitals - Labs Vital Signs - I&O Vital Signs Date Time Temp Pulse Resp B/P (MAP) Pulse Ox O2 Delivery O2 Flow Rate FiO2 11/12/22 05:40 80 18 120/60 (80) 100 Room Air 11/12/22 04:26 36.2 79 16 113/55 100 Room Air 11/12/22 04:20 36.5 80 18 113/55 (74) 100 Room Air Labs Laboratory Tests 11/12/22 05:30: White Blood Count 9.1, Red Blood Count 4.06, Hemoglobin 11.0L, Hematocrit 34L, Mean Corpuscular Volume 83, Mean Corpuscular Hemoglobin 27, Mean Corpuscular Hemoglobin Concent 33, Red Cell Distribution Width 14.2, Platelet Count 293, Mean Platelet Volume 10.6, Immature Granulocyte % (Auto) 1, Neutrophils (%) (Auto) 64, Lymphocytes (%) (Auto) 25, Monocytes (%) (Auto) 8, Eosinophils (%) (Auto) 2, Basophils (%) (Auto) 1, Neutrophils # (Auto) 5.8, Lymphocytes # (Auto) 2.2, Monocytes # (Auto) 0.7, Eosinophils # (Auto) 0.2, Basophils # (Auto) 0.1, Immature Granulocyte # (Auto) 0.1, Neutrophils % (Manual) 70, Lymphocytes % (Manual) 21, Monocytes % (Manual) 6, Eosinophils % (Manual) 3, Basophils % (Manual) 0, Band Neutrophils 0, Blood Morphology Comment NORMAL, Glucose Level 93 ELKE FAIRCHILD DO Nov 12, 2022 08:13
[2022-11-12] MEDS ORDERED: Tetanus/Diphtheria/Pertussis (Acell) ADULT Vaccine 0.5 ML IM SCH (08:15)
[2022-11-12] MEDS ORDERED: NALOXONE 0.4 MG/ML 1 ML VIAL IV PRN (08:15)
[2022-11-12] MEDS ORDERED: morphine INJ 4 MG/ML 1 ML (VIAL/SYRINGE) IV PRN (08:15)
[2022-11-12] MEDS ORDERED: ONDANSETRON INJECTION 4 MG/2 ML (SDV) IVP PRN (08:15)
[2022-11-12] MEDS ORDERED: MEASLES, MUMPS, RUBELLA VACCINE (MMR) SC SCH (08:15)
[2022-11-12] MEDS ORDERED: OXYTOCIN DRIP PRE-MIX 500 ML IV SCH (08:15)
[2022-11-12] MEDS: METOCLOPRAMIDE 10 MG TABLET PO SCH ×2 (09:19→17:20)
[2022-11-12] MEDS: DOCUSATE SODIUM 100 MG CAPSULE PO SCH ×2 (09:20→20:45)
[2022-11-12] MEDS: HYDROcodone/ACETAMINOPHEN 5 MG/325 MG TABLET PO PRN ×2 (13:43→20:45)
[2022-11-12] MEDS: CATHETER FLUSH 10 ML SYR IV SCH (17:20)
[2022-11-13] MEDS: CATHETER FLUSH 10 ML SYR IV SCH ×3 (00:28→14:00)
[2022-11-13] MEDS: KETOROLAC INJ 15 MG/ML VIAL IV SCH ×2 (00:28→06:19)
[2022-11-13] MEDS: METOCLOPRAMIDE 10 MG TABLET PO SCH ×4 (00:28→18:03)
[2022-11-13 00:46] VITALS: BP 118/67
[2022-11-13 04:00] VITALS: BP 128/76
[2022-11-13 06:07] LABS: BASOPHILS % (AUTO) 0 % (0-10); EOSINOPHILS # (AUTO) 0.2 10^3/uL (0.0-0.3); EOSINOPHILS % (AUTO) 2 % (0-10); HEMATOCRIT 29 % (35-52); HEMOGLOBIN 9.3 g/dL (11.5-16.0); LYMPHOCYTES # (AUTO) 2.2 10^3/uL (1.0-4.0); LYMPHOCYTES % (AUTO) 23 % (12-44); MEAN CORPUSCULAR HEMOGLOBIN 27 pg (25-34); MEAN CORPUSCULAR HGB CONC 32 g/dL (32-36); MEAN CORPUSCULAR VOLUME 84 fL (80-99); MEAN PLATELET VOLUME 10.2 fL (9.0-12.2); MONOCYTES # (AUTO) 0.6 10^3/uL (0.0-1.0); MONOCYTES % (AUTO) 7 % (0-12); NEUTROPHILS # (AUTO) 6.6 10^3/uL (1.8-7.8); NEUTROPHILS % (AUTO) 68 % (42-75); PLATELET COUNT 262 10^3/uL (130-400); WHITE BLOOD COUNT 9.7 10^3/uL (4.3-11.0)
[2022-11-13] MEDS: IBUPROFEN 800 MG TABLET PO SCH ×2 (06:38→15:41)
--- NOTE | 2022-11-13 08:54 | Postpartum Progress Note ---
Post Op Post-operative Day #1 Subjective: Patient is without complaints. Ambulating, voiding after marie removed. Tolerating a regular diet without nausea or vomiting. Normal lochia. Pain is well controlled with oral pain medications. Passing flatus Breast-feeding. [] Objective: VSSAF FBS 136 (not sure if true fasting) Physical Exam: General - Alert and oriented, no apparent distress Breast no erythema or engorgement Abdomen - Soft, appropriately tender to palpation, non-distended, fundus firm at umbilicus Incision - clean, dry and intact; no erythema or induration, no drainage Lochia minimal Extremities - no edema, negative Joelle's bilaterally Assessment: [] post-operative day # 1, status post P)rimary LTCS. Recovering well, hemodynamically stable anemia (HGB 9.3) Plan: Routine post-operative care. Encourage breast feeding. Encourage ambulation. VTE prophylaxis: SCDs. Ferrous sulfate supplementation. Plan for discharge [] Vitals - Labs Vital Signs - I&O Vital Signs Date Time Temp Pulse Resp B/P (MAP) Pulse Ox O2 Delivery O2 Flow Rate FiO2 11/13/22 04:00 36.0 72 18 128/76 (93) 100 Room Air 11/13/22 00:46 36.6 73 18 118/67 (84) 99 Room Air 11/12/22 20:10 36.5 73 16 124/58 (80) 99 Room Air 11/12/22 17:17 36.6 68 18 117/58 (77) 98 Room Air 11/12/22 13:36 36.3 77 18 112/55 (74) 100 Room Air 11/12/22 08:59 36.4 61 18 118/59 (78) 99 Room Air 11/12/22 08:55 Room Air 11/12/22 08:50 36.8 20 111/59 (76) 97 Room Air I & O 11/13/22 07:00 Intake Total 1450 ml Output Total 1125 ml Balance 325 ml Labs Laboratory Tests 11/12/22 11:47: Glucometer 101 11/12/22 17:16: Glucometer 103 11/13/22 00:44: Glucometer 159H 11/13/22 05:42: White Blood Count 9.7, Red Blood Count 3.44L, Hemoglobin 9.3L, Hematocrit 29L, Mean Corpuscular Volume 84, Mean Corpuscular Hemoglobin 27, Mean Corpuscular Hemoglobin Concent 32, Red Cell Distribution Width 14.0, Platelet Count 262, Mean Platelet Volume 10.2, Immature Granulocyte % (Auto) 0, Neutrophils (%) (Auto) 68, Lymphocytes (%) (Auto) 23, Monocytes (%) (Auto) 7, Eosinophils (%) (Auto) 2, Basophils (%) (Auto) 0, Neutrophils # (Auto) 6.6, Lymphocytes # (Auto) 2.2, Monocytes # (Auto) 0.6, Eosinophils # (Auto) 0.2, Basophils # (Auto) 0.0, Immature Granulocyte # (Auto) 0.0, Glucose Level 136H ELKE FAIRCHILD DO Nov 13, 2022 08:54
[2022-11-13] MEDS ORDERED: ACHD5005 PO (08:58)
[2022-11-13] MEDS ORDERED: DOCU100C37 PO (08:58)
[2022-11-13] MEDS ORDERED: IBUP-1780 PO (08:58)
--- NOTE | 2022-11-13 12:45 | Anesthesia-Regional Post-Op ---
Regional Patient Condition Mental Status: Alert, Oriented x3 Circulation: Same as Pre-Op Headache: Absent Sensation: Full Recovery Motor Block: Absent Post Op Complications Complications None Follow Up Care/Instructions Patient Instructions None needed. Anesthesia/Patient Condition Patient is doing well, no complaints, stable vital signs, no apparent adverse anesthesia problems. No complications reported per nursing. CHANEL GUTIERREZ CRNA Nov 13, 2022 12:45
[2022-11-13 13:45] VITALS: BP 119/76
[2022-11-13] MEDS: HYDROcodone/ACETAMINOPHEN 5 MG/325 MG TABLET PO PRN ×2 (15:41→22:10)
[2022-11-13 18:04] VITALS: BP 129/73
[2022-11-13] MEDS: DOCUSATE SODIUM 100 MG CAPSULE PO SCH ×2 (19:56→22:09)
[2022-11-14 00:44] VITALS: BP 117/71
[2022-11-14] MEDS: METOCLOPRAMIDE 10 MG TABLET PO SCH ×3 (00:44→12:06)
[2022-11-14] MEDS: IBUPROFEN 800 MG TABLET PO SCH ×2 (00:44→12:06)
[2022-11-14 05:49] VITALS: BP 135/58
--- NOTE | 2022-11-14 07:01 | Postpartum Progress Note ---
Post Op Post-operative Day #2 Subjective: Patient is without complaints. Ambulating, voiding after marie removed. Tolerating a regular diet without nausea or vomiting. Normal lochia. Pain is well controlled with oral pain medications. Passing flatus. Breast-feeding. BS look good. Objective: VSS AF FBS 109 Physical Exam: General - Alert and oriented, no apparent distress Abdomen - Soft, appropriately tender to palpation, non-distended, fundus firm at umbilicus Incision - clean, dry and intact; no erythema or induration, no drainage Lochia minimal Extremities - no edema, negative Joelle's bilaterally Assessment: [] post-operative day # 2, status post LTCS. Recovering well, hemodynamically stable Plan: Routine post-operative care. Encourage breast feeding. Encourage ambulation. VTE prophylaxis: SCDs. Ferrous sulfate supplementation. Plan for discharge today Vitals - Labs Vital Signs - I&O Vital Signs Date Time Temp Pulse Resp B/P (MAP) Pulse Ox O2 Delivery O2 Flow Rate FiO2 11/14/22 05:49 36.4 79 20 135/58 (83) 100 Room Air 11/14/22 00:44 36.0 75 18 117/71 (86) 100 Room Air 11/13/22 18:04 36.5 67 17 129/73 (91) 100 Room Air 11/13/22 13:45 36.7 78 19 119/76 (90) 99 Room Air 11/13/22 09:25 36.5 75 20 97 Room Air I & O 11/14/22 07:00 Intake Total 650 ml Output Total 200 ml Balance 450 ml Labs Laboratory Tests 11/13/22 10:36: Glucometer 106 11/13/22 16:22: Glucometer 103 11/13/22 21:40: Glucometer 123H 11/14/22 05:48: Glucometer 109 ELKE FAIRCHILD DO Nov 14, 2022 07:01
--- NOTE | 2022-11-14 07:05 | Discharge Summary ---
Discharge Summary Hospital Course Problems Reviewed?: Yes Hospital Course Date of Admission: Nov 12, 2022 at 06:30 Admission Diagnosis : Family Physician/Provider: Jessenia Jack MD Date of Discharge: 11/14/22 Discharge Diagnosis: Status post low transverse section. Hospital Course: Patient was admitted for labor and decelerations. Baby was in norman karthik ech presentation with head to maternal right. She proceeded to a low transverse section which she delivered a liveborn female . Patient had a history of gestational diabetes. During the period her blood sugars were within normal limits and her diabetic medications were discontinued. Her hemoglobin on postop day #1 was 9.3 we started her on iron supplementation. She continued to ambulate and do very well postoperatively. On postop day #2 she was discharged home with pain medications and instructions to follow-up in 1 week. Labs and Pending Lab Test: Laboratory Tests 11/13/22 10:36: Glucometer 106 11/13/22 16:22: Glucometer 103 11/13/22 21:40: Glucometer 123H 11/14/22 05:48: Glucometer 109 Home Meds Active Docusate Sodium 100 Mg Capsule 100 Mg PO BID take one tablet twice a day for constipation Hydrocodone-Acetamin 5-325 mg (Hydrocodone/Acetaminophen) 5 Mg-325 Mg Tablet 1-2 Ea PO Q4H PRN Take one tablet every 4hrs as needed for pain Ibuprofen 800 Mg Tablet 800 Mg PO Q8H Take one tablet every 8hrs as needed for pain Reported Levemir Flexpen (Insulin Detemir) 100 Unit/Ml (3 Ml) Insuln.pen 100 Unit SQ Metformin HCl 500 Mg Tablet 500 Mg PO Iron (Ferrous Sulfate) 325 Mg Tablet 325 Mg PO DAILY Tablet ( Vit/Iron Fumarate/FA) 1 Each Tablet 1 Each PO DAILY Activity: Activity as Tolerated Driving Instructions: No Driving for 1 Week NO SMOKING: NO SMOKING Nothing Inside Vagina: No Douching, No [place], No Tampons Discharge Diet: Regular Diet Symptoms to Report to : Pain Increased, Constipation(Persistant), Fever Over 101 Degrees F, Vaginal Bleeding Increase, Vaginal Discharge Foul For Any Problems or Questions: Contact Your Physician Infection Signs and Symptoms: Increased Redness, Foul Odor of Wound, Increased Drainage, Skin Itchy or Has a Rash, Increased Swelling, Temperature Above 101 F Operative Area Clean and Dry: Keep Incision Clean/Dry Stitches/[place]/Dermabond: Dermabond Discharge Physical Examination Allergies: Coded Allergies: No Known Drug Allergies (Unverified , 12/12/20) Vitals & I&Os Vital Signs Date Time Temp Pulse Resp B/P (MAP) Pulse Ox O2 Delivery O2 Flow Rate FiO2 11/14/22 05:49 36.4 79 20 135/58 (83) 100 Room Air Discharge Summary Date of Admission Nov 12, 2022 at 06:30 Date of Discharge Discharge Date: Nov 14, 2022 Discharge Time: 07:00 Supervisory-Addendum Brief Verification & Attestation Participated in pt care: history, MDM, physical Personally performed: exam, history, MDM, supervision of care Care discussed with: Medical Student Procedures: n/a Results interpretation: Verified all documentation I saw and examined this patient personally ELKE FAIRCHILD DO Nov 14, 2022 07:05
[2022-11-14] MEDS: DOCUSATE SODIUM 100 MG CAPSULE PO SCH (12:06)
[2022-11-14] MEDS: HYDROcodone/ACETAMINOPHEN 5 MG/325 MG TABLET PO PRN (12:06)
[2022-11-14 12:08] VITALS: BP 123/74
== END 2022-11-14 12:24 | disposition home or self-care (01) | DRG 788 ==
LOC: LDRP 03:58 → WSo 03:58 → LDRP 06:30 → WS 08:53
PROVIDERS: ADMIT Obstetrics & Gynecology; ATTEND Obstetrics & Gynecology
PROC: 10D00Z1 Extraction of Products of Conception, Low, Open Approach (ICD-10-PCS; principal; 2022-11-12 07:13)
DX: O76 Abnormality in fetal heart rate and rhythm complicating labor and delivery (principal); Z3A.37 37 weeks gestation of pregnancy; Z37.0 Single live birth; O24.425 Gestational diabetes mellitus in childbirth, controlled by oral hypoglycemic drugs; O32.1XX0 Maternal care for breech presentation, not applicable or unspecified; O90.81 Anemia of the puerperium
CPT/HCPCS: 36415; 82947; 85007; 85025; 85027; 86850; 86900; 86901; 94664